=== PATIENT | male | born 1990 | race Caucasian/White ===

== ENCOUNTER 2021-03-03 12:05 | Emergency (ER) | payer MEDICAID, SELFPAY ==
[2021-03-03 12:24] VITALS: BP 128/67; PULSE 100; RESP 16; TEMP 37.2; O2SAT 98; BMI 27.3
--- NOTE | 2021-03-03 12:42 | PC.NURSE ---
Pt not at bedside, he left without seeing provider.
== END 2021-03-03 12:49 | disposition left against medical advice (07) ==
PROVIDERS: Emergency Provider Emergency Medicine
DX: S89.90XA Unspecified injury of unspecified lower leg, initial encounter (principal); X58.XXXA Exposure to other specified factors, initial encounter; Y93.9 Activity, unspecified; Y92.9 Unspecified place or not applicable; Y99.9 Unspecified external cause status
CPT/HCPCS: 99281; 99283